=== PATIENT | female | born 1980 | race African-American/Black ===

== ENCOUNTER 2020-08-17 21:47 | Emergency (ER) | payer OTHER ==
[~2020-08-17] VITALS: Ht 170.2 cm; Wt 59.0 kg
[2020-08-18] MEDS ORDERED: NAPROXEN500 MG PO (04:52)
== END 2020-08-18 05:04 | disposition home or self-care (01) ==
LOC: ER 21:47
DX: N83.291 Other ovarian cyst, right side (principal); R10.31 Right lower quadrant pain